=== PATIENT | female | born 1990 | race Caucasian/White ===

== ENCOUNTER 2021-04-17 16:58 | Emergency (ER) | payer BC ==
[2021-04-17 17:28] VITALS: TEMP 98.7; BMI 27.3
[2021-04-17 18:01] LABS: BASO % 1.5 % (0-2.0); EOS % 3.2 % (0-4.5); HEMATOCRIT 37.7 % (32.4-45.2); HEMOGLOBIN 12.8 GM/dl (10.7-15.3); LYMPH % 20.5 % (8-40); MCHC 33.9 g/dl (32.0-36.0); MEAN CELL VOLUME 88.5 fl (80-96); MEAN PLT VOLUME 9.2 fl (7.5-11.1); NEUT % 63.8 % (42.8-82.8); PLATELET COUNT 222 10^3/uL (134-434); RBC 4.26 M/mm3 (3.60-5.2); RDW 12.1 % (11.6-15.6); WHITE BLOOD COUNT 6.6 K/mm3 (4.0-10.8)
[2021-04-17 18:18] LABS: ALBUMIN 4.2 g/dl (3.4-5.0); BILIRUBIN,TOTAL 0.9 mg/dl (0.2-1); CALCIUM 8.6 mg/dl (8.5-10); CREATININE 0.6 mg/dl (0.55-1.3); TOT PROT 6.5 g/dl (6.4-8.2)
[2021-04-17 20:05] VITALS: BP 120/80; PULSE 89
== END 2021-04-17 20:11 | disposition home or self-care (01) ==
LOC: FER 16:58
DX: R07.89 Other chest pain (principal)
CPT/HCPCS: 36415; 71045-TC-FY; 80053; 81003; 81025; 82550; 84484; 85025; 87804; 87807; 93005; 99285-25; C9803; U0003; U0005